=== PATIENT | female | born 2005 | race Caucasian/White ===

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

== ENCOUNTER 2023-01-22 13:45 | Outpatient (CLI) | payer BC, SELFPAY ==
--- NOTE | 2023-01-22 14:18 | P.STN_ITS ---
Stress Test Note Date Date Seen: 01/22/23 Date of test: 01/22/23 Providers Primary care provider: Brigid Cabrera Stress test physician: Leigh Grace Stress Test Note Stress test ordered: Stress Echo Indication for test: Tachycardia Results discussion: Resting EKG: Sinus rhythm, 92 beats per minute. Resting blood pressure: 110/74 Stress test: Patient exercised on the treadmill following standard Jose protocol. Patient exercised to 10 minute 21 seconds stopping due to reaching exercise capacity. This is equivalent to 11.9 Mets. Patient had a maximal heart rate of 196 beat per minute which was 114% of a calculated target heart rate of 171. He she had a rate pressure product of 25,200 with a maximal blood pressure during exercise of 144/78. There was no arrhythmia, no ischemia, patient had no significant symptoms that would not be expected for this level of exercise. Specifically there is no chest pain. She had good heart rate recovery. Await echo images to couple this for a full formal diagnostic. Impression: Subjectively negative, objectively negative EKG portion of this stress test. Follow up suggested: Await Cardiology to read echo images to couple this for a full formal diagno stic. She should get a report from her ordering primary once this is back. Patient was discharged from the stress test in stable condition.
[2023-01-22 14:43] VITALS: BP 130/64; PULSE 119; RESP 18
== END 2023-01-22 14:51 | disposition home or self-care (01) ==
LOC: STRESS 13:45
PROVIDERS: PCP Physician Assistant Medical; Visit Provider Family Medicine
DX: R00.0 Tachycardia, unspecified (principal)
CPT/HCPCS: 93016; 93325; 93351

== ENCOUNTER 2023-05-23 11:47 | Emergency (ER) | payer BC, SELFPAY ==
[2023-05-23 11:51] VITALS: BP 129/78; PULSE 99; RESP 16; TEMP 36.9; O2SAT 98; BMI 22.5
--- NOTE | 2023-05-23 12:22 | CRLHL7_ITS ---
For Patients: As a result of the Century Cures Act, medical imaging exams and procedure reports are released immediately into your electronic medical record. You may view this report before your referring provider. If you have questions, please contact your health care provider. INDICATION: Questioning right peritonsillar abscess. TECHNIQUE: CT images of the neck following intravenous contrast. Comparison CT neck 04/28/2022. FINDINGS: Enlargement of the right greater left palatine tonsils demonstrating striated enhancement. Hypoenhancement within the right tonsil/peritonsillar region measuring up to 9 mm, compatible with phlegmon or abscess. Mass effect results in mild narrowing of the oropharyngeal airway. Mild stranding in the right parapharyngeal space. The nasopharynx, hypopharynx, and larynx are widely patent. No retropharyngeal edema or thickening of the epiglottis. No enhancing lesions in the floor of mouth. The parotid and submandibular glands unremarkable. Enlarged bilateral level I and II lymph nodes, several of which demonstrate elongated morphology. The thyroid gland is unremarkable. Limited images through the brain are without pathologic intracranial enhancement. The paranasal sinuses and mastoid air cells are clear. Reversal of the cervical lordosis. No aggressive osseous lesions. No concerning opacity is in the visualized lungs. IMPRESSION: 1. Enlargement of the right greater than left palatine tonsils demonstrating striated enhancement, compatible with tonsillitis. Hypoenhancement measuring 10 mm within the right tonsil/peritonsillar region is compatible with phlegmon or abscess. There is mild narrowing of the oropharyngeal airway. 2. Enlarged bilateral level I and II lymph nodes are most likely reactive. Please note that all CT scans at this facility use dose modulation, iterative reconstruction, and/or weight-based dosing when appropriate to reduce radiation dose to as low as reasonably achievable. Dictated by Familia Jaramillo MD @ 05/23/2023 2:35:36 PM (Electronically Signed)
--- NOTE | 2023-05-23 12:22 | ED_ITS ---
HPI - General Adult General Chief complaint: Sore Throat Stated complaint: Throat abscess Time Seen by Provider: 05/23/23 12:08 History of Present Illness HPI narrative: This 17-year-old female comes in with her mother because of sore throat that began 5 days ago. She has a history of peritonsillar abscess that occurred about a year ago. She states that she has sore throat but denies having any fever or cough. She feels some swelling on the right side of her neck. Her right tonsil is also enlarged. She does report a muffled voice but does not have any trismus. Related Data Previous Rx's Medication Instructions Recorded desogestrel 0.15 mg-ethinyl 1 tab PO QDAY #84 tabs 05/08/23 estradiol 0.03 mg tablet (Apri) sertraline 50 mg tablet 50 mg PO QDAY #90 tabs 05/08/23 amoxicillin 875 mg-potassium 1 tab PO BID #20 tabs 05/23/23 clavulanate 125 mg tablet ketorolac 10 mg tablet 10 mg PO Q8H 5 days #15 tabs 05/23/23 Allergies Allergy/AdvReac Type Severity Reaction Status Date / Time amoxicillin AdvReac Vomiting Verified 05/23/23 11:56 Review of Systems Status of ROS: Reports: 10 or more systems reviewed and unremarkable except as noted in History and below Narrative: Constitutional: No fevers, no weight gain or loss. Eyes: No discharge. No vision changes. HENT: No congestion, no ear pain. Sore throat is described above. Cardiovascular: No chest pain, no palpitations. Respiratory: No shortness of breath, no wheezes, no cough. Gastrointestinal: No abdominal pain, no vomiting, no diarrhea. Genitourinary: No dysuria, no hematuria. Musculoskeletal: Normal range of motion. Skin: No rashes, no pruritis. Neurological: No dizziness, weakness, sensory change, speech change. Endo/Heme/Allergies: No bruising or bleeding. No polydipsia. Pysch: no suicidality, no anxiety, no insomnia. All other systems reviewed and are negative. [facility] Social History Smoking Status: Never smoker Do you use any of these nicotine containing products: None Second hand tobacco smoke exposure: No How often do you have a drink containing alcohol: never AUDIT-C Alcohol total score: 0 Non-prescribed substance use: denies use Exam Narrative: Exam Narrative: Constitutional: Well-developed, well-nourished, no acute distress. HEENT: Normocephalic, atraumatic. Oropharynx has erythema with right tonsillar hypertrophy. She has some muffled voice but no trismus. Neck: Normal range of motion. Nontender. Supple. Heart: Regular. No murmurs. Normal rate. Intact distal pulses. Lungs: Clear to auscultation. No chest discomfort. No wheezes, rhonchi, or rales. Abdomen: Normal bowel sounds. Nontender. No rebound tenderness. Genitalia: Deferred. Back: No midline tenderness. Normal range of motion. Extremities: Normal range of motion. No injury. Skin: Intact. No rash. Warm. No erythema or pallor. Neurologic: No altered sensation. No weakness. Alert and oriented. Psychiatric: No suicidality. No anxiety or depression. No insomnia. Nursing notes and vitals signs are reviewed. Const: Vital Signs, click to edit/add: Vital Signs - 24 hr 05/23/23 11:51 Temperature 98.4 F Pulse Rate [Right Pulse Oximeter] 99 Respiratory Rate 16 Blood Pressure [Ri ght Upper Arm] 129/78 Pulse Oximetry 98 Oxygen Delivery Me thod Room Air Course Vital Signs Vital signs: Initial Vital Signs Temperature 98.4 F 05/23/23 11:51 Temperature Source Temporal Artery Scan 05/23/23 11:51 Pulse Rate 99 05/23/23 11:51 Respiratory Rate 16 05/23/23 11:51 Blood Pressure 129/78 05/23/23 11:51 Blood Pressure Mean 95 05/23/23 11:51 Blood Pressure Position Sitting 05/23/23 11:51 Pulse Oximetry 98 05/23/23 11:51 Oxygen Delivery Method Room Air 05/23/23 11:51 Vital Signs Temperature 98.4 F 05/23/23 11:51 Pulse Rate 99 05/23/23 11:51 Respiratory Rate 16 05/23/23 11:51 Blood Pressure 129/78 05/23/23 11:51 Pulse Oximetry 98 05/23/23 11:51 Oxygen Delivery Method Room Air 05/23/23 11:51 Temperature 98.4 F 05/23/23 11:51 Pulse Rate 99 05/23/23 11:51 Respiratory Rate 16 05/23/23 11:51 Blood Pressure 129/78 05/23/23 11:51 Pulse Oximetry 98 05/23/23 11:51 Oxygen Delivery Method Room Air 05/23/23 11:51 Medications Administered Medications: Discontinued Medications Generic Name Dose Route Start Last Admin Trade Name Jeffrey PRN Reason Stop Dose Admin Hydromorphone HCl 0.5 mg 05/23/23 14:56 05/23/23 15:14 Hydromorphone 0.5 Mg/0.5 Ml Inj IVP 05/23/23 14:57 0.5 mg ONCE ONE Administration Ampicillin Sodium/Sulbactam 100 mls @ 200 mls/hr 05/23/23 14:56 05/23/23 15:14 Sodium 3 gm/ Sodium Chloride IVPB 05/23/23 14:57 200 mls/hr ONCE ONE Administration Ondansetron HCl 4 mg 05/23/23 14:56 05/23/23 15:14 Ondansetron 2 Mg/Ml Inj IVP 05/23/23 14:57 4 mg ONCE ONE Administration Medical Decision Making MDM Narrative Medical decision making narrative: This patient comes in with 5 days of sore throat and notices swelling of her tonsil on the right side with associated pain and swelling in the right side of her neck. She had a tonsillar abscess about a year ago and comes in thinking that she may have developed another tonsillar abscess. An IV is established and CT of the soft tissue of the neck is obtained which does show evidence of a 1 cm abscess. This is on the borderline for needing drainage. The patient does wish to have an attempt at drainage as this was what brought relief a year ago. The patient did receive Dilaudid 0.5 mg and Zofran 4 mg in the IV. She also received 3 g of Unasyn. I did anesthetize the right tonsil with 1% lidocaine with epinephrine and then followed by a bee 18 gauge needle with the cap partially cut off to restrict to no more than penetration of about 1/2 inch. I attempted to drain fluid with 2 pokes. There was no fluid aspirated. This patient is okay to return home and received prescriptions for Augmentin and Toradol. She has a listed allergy to amoxicillin but has tolerated both Unasyn and Augmentin in the past. The patient understands signs and symptoms that would indicate a need for return and re-evaluation. Lab Data Labs: Lab Results 05/23/23 Range/Units 12:35 WBC 6.66 (4.50-11.00) K/uL RBC 4.17 (4.00-5.20) m/uL Hgb 12.6 (12.0-16.0) gm/dL Hct 38.1 (33.0-51.0) % MCV 91 (80-100) fL MCH 30 (26-34) pg MCHC 33 (32-36) gm/dL RDW Coeff of Ino 13.7 (11.5-15.5) % Plt Count 146 (140-440) K/uL Neut % (Auto) 45.0 (42.0-72.0) % Lymph % (Auto) 48.3 H (20-44) % [place] % (Auto) 5.9 (0.0-11.0) % Eos % (Auto) 0.2 (0.0-7.0) % Baso % (Auto) 0.3 (0.0-3.0) % Neut # (Auto) 3.00 (1.7-7.0) K/uL Lymph # (Auto) 3.20 H (0.90-2.90) K/uL [place] # (Auto) 0.40 (0.00-0.90) K/UL Eos # (Auto) 0.01 (0.00-0.50) K/uL Baso # (Auto) 0.02 (0.00-0.30) K/uL Abs Immat Gran (auto) 0.02 (0.00-0.30) K/uL Imm/Tot Granulo (auto) 0.3 % Diff Slide Review Acceptable Review (Acceptable) Discharge Plan Discharge Clinical Impression: Tonsillar abscess Patient Disposition: Home w/ Parent or Adult Condition: Stable Additional Instructions: Take medication as prescribed. Follow-up with your nose and throat for ongoing management or return if symptoms are persistent or worsening. Prescriptions: New ketorolac 10 mg tablet 10 mg PO Q8H 5 Days Qty: 15 0RF amoxicillin-pot clavulanate 875-125 mg tablet 1 tab PO BID Qty: 20 0RF No Action sertraline 50 mg tablet 50 mg PO QDAY Qty: 90 0RF Rx Instructions: one tablet daily desogestrel-ethinyl estradiol [Apri] 0.15-0.03 mg tablet 1 tab PO QDAY Qty: 84 0RF Follow Up/Referrals: Brigid Cabrera PA-C [Primary Care Provider] - Stand Alone Forms: [employer] Info Instructions
[2023-05-23 12:40] LABS: Basophils Absolute Auto 0.02 K/uL (0.00-0.30); Basophils Percent Auto 0.3 % (0.0-3.0); Eosinophils Absolute Auto 0.01 K/uL (0.00-0.50); Eosinophils Percent Auto 0.2 % (0.0-7.0); Hematocrit 38.1 % (33.0-51.0); Hemoglobin* 12.6 gm/dL (12.0-16.0); Immature Granulocytes Abs Auto 0.02 K/uL (0.00-0.30); Immature Granulocytes Pct Auto 0.3 %; Lymphocytes Percent Auto 48.3 % (20-44); Mean Corpuscular HGB Conc 33 gm/dL (32-36); Mean Corpuscular Hemoglobin 30 pg (26-34); Mean Corpuscular Volume 91 fL (80-100); Monocytes Percent Auto 5.9 % (0.0-11.0); Platelet Count* 146 K/uL (140-440); RDW Coefficient of Variation % 13.7 % (11.5-15.5); Red Blood Count 4.17 m/uL (4.00-5.20); White Blood Count* 6.66 K/uL (4.50-11.00)
[2023-05-23 13:02] LABS: Slide Review Reflex Yes
[2023-05-23 13:03] LABS: Slide Review Acceptable Review (Acceptable)
[2023-05-23] MEDS: ONDANSETRON 2 MG/ML inj 4 MG IVP (15:14)
[2023-05-23] MEDS: AMPICILLIN/SULBACTAM 3 GM in 0.9 % SODIUM CHLORIDE Mini-bag 100 ML IVPB (15:14)
[2023-05-23] MEDS: HYDROmorphone 0.5 mg/0.5 ml inj IVP (15:14)
[2023-05-23 15:22] VITALS: BP 112/75; PULSE 85; RESP 16; O2SAT 99
--- NOTE | 2023-05-24 17:37 | ED.NURSE ---
Patient called today stating that the following antibiotic was not received by [facility]: Cefuroxime 500 mg tablet BID x 10 days #20 She was able to slate picker the Toradol prescription, she has an allergy to Amoxicillin. This was called in again to [facility] per discharge instructions. Patient appreciated the follow up.
== END 2023-05-23 16:34 | disposition home or self-care (01) ==
PROVIDERS: Emergency Provider Emergency Medicine Emergency Medical Services; PCP Physician Assistant Medical
DX: J36 Peritonsillar abscess (principal)
CPT/HCPCS: 10160; 36415; 70491; 85025; 96365; 96375; 99284; 99285; J0295; J1170; J2405; Q9967

== ENCOUNTER 2023-05-26 11:16 | Observation (INO) | payer BC, SELFPAY ==
[2023-05-26] VITALS (7 sets, daily range): BP systolic 114–139; BP diastolic 75–91; PULSE 85–88; RESP 16–17; TEMP 36.6; O2SAT 97–99; BMI 22.5; BMI 24.0
--- NOTE | 2023-05-26 11:38 | ED_ITS ---
HPI - General Adult General Chief complaint: Sore Throat Stated complaint: Likely med reaction--face/throat swollen Time Seen by Provider: 05/26/23 11:29 Source: patient Mode of arrival: ambulatory Limitations: no limitations History of Present Illness HPI narrative: 17-year-old female coming in today with worsening sore throat. Patient was seen on 05/23 and diagnosed with a right sided tonsillar and peritonsillar abscess. Drainage was attempted in the ER but nothing was able to be draining she was sent home with antibiotics. She states that she has had 3 doses of her antibiotic and today she woke up with worsening sore throat and swelling around her eyes. She noticed that she looked in the mirror and the left tonsil is now also swollen. She denies fevers or chills. No nausea. No difficulty breathi ng. She denies swelling of her lips or tongue. She denies any skin rashes. Related Data Previous Rx's Medication Instructions Recorded desogestrel 0.15 mg-ethinyl 1 tab PO QDAY #84 tabs 05/08/23 estradiol 0.03 mg tablet (Apri) sertraline 50 mg tablet 50 mg PO QDAY #90 tabs 05/08/23 amoxicillin 875 mg-potassium 1 tab PO BID #20 tabs 05/23/23 clavulanate 125 mg tablet cefuroxime axetil 500 mg tablet 500 mg PO BID 10 days #20 tabs 05/23/23 ketorolac 10 mg tablet 10 mg PO Q8H 5 days #15 tabs 05/23/23 Allergies Allergy/AdvReac Type Severity Reaction Status Date / Time amoxicillin AdvReac Vomiting Verified 05/23/23 11:56 Review of Systems Status of ROS: Reports: 10 or more systems reviewed and unremarkable except as noted in History and below [facility] Social History Smoking Status: Never smoker Do you use any of these nicotine containing products: None Second hand tobacco smoke exposure: No How often do you have a drink containing alcohol: never AUDIT-C Alcohol total score: 0 Non-prescribed substance use: denies use Exam Narrative: Exam Narrative: Well-nourished well-developed patient in no acute distress. Alert and oriented. Answers questions appropriately. Mood and affect are appropriate. Thoughts are goal oriented and rational. No tangential or magical thinking noted. Patient speaks in full sentences without needing to catch her breath. HEENT: Normocephalic atraumatic. Pupils are equally round reactive to light. Extraocular muscles are intact. Conjunctivae are moist without any icterus noted. Moist mucous membranes. Posterior pharynx shows bilateral tonsillar swelling, right greater than the left. Exudates present bilaterally and erythema. There is no swelling of the lips or tongue. Cardiovascular: Heart is regular rate and rhythm. Lungs: Clear to auscultation bilaterally. Skin: Well perfused without any obvious rashes. Const: Vital Signs, click to edit/add: Vital Signs - 24 hr 05/26/23 11:24 05/26/23 14:04 Temperature 97.8 F Pulse Rate [Pulse Oximeter] 88 85 Respiratory Rate 17 16 Blood Pressure [Ri ght Upper Arm] 132/80 Pulse Oximetry 99 97 Oxygen Delivery Me thod Room Air Room Air Course Course ED Course: [place] was positive. Rapid strep is negative. Repeat soft tissue neck CT shows that the right-sided tonsillar abscesses increased to 1.3 cm. I did consult with Dr. Patel who recommended IV antibiotics, dexamethasone 8 mg every 6 hours x3 doses and admission for monitoring. First dose of clindamycin dexamethasone given in the ED. Vital Signs Vital signs: Initial Vital Signs Temperature 97.8 F 05/26/23 11:24 Temperature Source Temporal Artery Scan 05/26/23 11:24 Pulse Rate 88 05/26/23 11:24 Respiratory Rate 17 05/26/23 11:24 Blood Pressure 132/80 05/26/23 11:24 Blood Pressure Mean 97 05/26/23 11:24 Pulse Oximetry 99 05/26/23 11:24 Oxygen Delivery Method Room Air 05/26/23 11:24 Vital Signs Temperature 97.8 F 05/26/23 11:24 Pulse Rate 88 05/26/23 11:24 Respiratory Rate 17 05/26/23 11:24 Blood Pressure 132/80 05/26/23 11:24 Pulse Oximetry 99 05/26/23 11:24 Oxygen Delivery Method Room Air 05/26/23 11:24 Temperature 97.8 F 05/26/23 11:24 Pulse Rate 85 05/26/23 14:04 Respiratory Rate 16 05/26/23 14:04 Blood Pressure 132/80 05/26/23 11:24 Pulse Oximetry 97 05/26/23 14:04 Oxygen Delivery Method Room Air 05/26/23 14:04 Medications Administered Medications: Discontinued Medications Generic Name Dose Route Start Last Admin Trade Name Jeffrey PRN Reason Stop Dose Admin Dexamethasone 8 mg 05/26/23 13:29 05/26/23 14:02 Dexamethasone 4 Mg/Ml Vial IV 05/26/23 13:30 8 mg ONCE ONE Administration Medical Decision Making MDM Narrative Medical decision making narrative: 17-year-old female with a tonsillar abscess. Patient will be admitted for further management. Medical Records Medical records reviewed: Yes I reviewed the patient's medical records Lab Data Lab results reviewed: Yes I reviewed the patient's lab results Labs: Lab Results 05/26/23 Range/Units 11:56 Monoscreen POSITIVE A (Negative) Group A Strep DNA NOT DETECTED (Not Detectd) Imaging Data Soft tissue neck CT: Radiologist's impression: Volumetric multidetector CT images of the cervical soft tissues were obtained after the administration of low osmolar intravenous contrast. 66 cc Isovue 370 low osmolar intravenous contrast Comparison: CT soft tissue neck May 2023 Findings: The partially visualized brain parenchyma is normal in attenuation without evidence of abnormal enhancement. The orbits and their contents are within normal limits. The paranasal sinuses are clear. The mastoid air cells are clear. The nasopharynx is unremarkable. The fossae of Rosenmuller are clear. Again seen is enlargement of the right greater than left palatine tonsils with demonstration of an intra tonsillar fluid collection measuring 1.3 centimeters. This is slightly increased in size from comparison. No evidence of significant peritonsillar extension at this time. The hypopharynx is clear. The deep spaces of the neck are otherwise preserved. The vocal folds are nonthickened with symmetrical appearance. The thyroid gland is normal in attenuation. There are enlarged right greater than left cervical lymph nodes again seen. The jugular veins are patent. The carotid arteries demonstrate no significant atherosclerotic narrowing. The lung apices are clear. There is persistent mild reversal of the normal cervical lordosis. Impression: Persistent enlargement of the bilateral palatine tonsils right greater than left with re-demonstration of an intra tonsillar fluid collection in the right tonsil now measuring 1.3 centimeters, previously measuring 9 millimeters. No evidence of significant peritonsillar extension. Persistent markedly enlarged cervical lymph nodes. Discharge Plan Discharge Clinical Impression: Abscess of tonsil Patient Disposition: Admitted As Observation Condition: Stable Prescriptions: No Action ketorolac 10 mg tablet 10 mg PO Q8H 5 Days Qty: 15 0RF amoxicillin-pot clavulanate 875-125 mg tablet 1 tab PO BID Qty: 20 0RF cefuroxime axetil 500 mg tablet 500 mg PO BID 10 Days Qty: 20 0RF sertraline 50 mg tablet 50 mg PO QDAY Qty: 90 0RF Rx Instructions: one tablet daily desogestrel-ethinyl estradiol [Apri] 0.15-0.03 mg tablet 1 tab PO QDAY Qty: 84 0RF Follow Up/Referrals: Brigid Cabrera PA-C [Primary Care Provider] -
--- NOTE | 2023-05-26 11:42 | CRLHL7_ITS ---
For Patients: As a result of the Cures Act, medical imaging exams and procedure reports are released immediately into your electronic medical record. You may view this report before your referring provider. If you have questions, please contact your health care provider. Indication: Tonsillar abscess Technique: Volumetric multidetector CT images of the cervical soft tissues were obtained after the administration of low osmolar intravenous contrast. 66 cc Isovue 370 low osmolar intravenous contrast Comparison: CT soft tissue neck May 2023 Findings: The partially visualized brain parenchyma is normal in attenuation without evidence of abnormal enhancement. The orbits and their contents are within normal limits. The paranasal sinuses are clear. The mastoid air cells are clear. The nasopharynx is unremarkable. The fossae of Rosenmuller are clear. Again seen is enlargement of the right greater than left palatine tonsils with demonstration of an intra tonsillar fluid collection measuring 1.3 centimeters. This is slightly increased in size from comparison. No evidence of significant peritonsillar extension at this time. The hypopharynx is clear. The deep spaces of the neck are otherwise preserved. The vocal folds are nonthickened with symmetrical appearance. The thyroid gland is normal in attenuation. There are enlarged right greater than left cervical lymph nodes again seen. The jugular veins are patent. The carotid arteries demonstrate no significant atherosclerotic narrowing. The lung apices are clear. There is persistent mild reversal of the normal cervical lordosis. Impression: Persistent enlargement of the bilateral palatine tonsils right greater than left with re-demonstration of an intra tonsillar fluid collection in the right tonsil now measuring 1.3 centimeters, previously measuring 9 millimeters. No evidence of significant peritonsillar extension. Persistent markedly enlarged cervical lymph nodes. Please note that all CT scans at this facility use dose modulation, iterative reconstruction, and/or weight-based dosing when appropriate to reduce radiation dose to as low as reasonably achievable. Dictated by Randolph Dhillon MD @ 05/26/2023 1:08:32 PM (Electronically Signed)
[2023-05-26 12:21] LABS: Mono Screen* POSITIVE (Negative)
[2023-05-26 12:41] LABS: Strep A DNA Probe* NOT DETECTED (Not Detectd)
[2023-05-26] MEDS: dexAMETHasone 4 MG/ML VIAL 8 MG IV ×2 (14:02→21:17)
[2023-05-26] MEDS: CLINDAMYCIN 600 MG/50 ML-D5W 600 MG/50 ML PIGGYBACK 100 MG IVPB ×2 (14:19→21:15)
--- NOTE | 2023-05-26 15:16 | P.IMHP_ITS ---
Hospitalist- H&P: HPI History of Present Illness Time Seen by Provider: 14:20 Date Seen: 05/26/23 Chief complaint: Likely med reaction--face/throat swollen Narrative: Dinah Martin is a 17 year old female with a history of sarcoma of the left forearm 5 years ago and was recently diagnosed with a right-sided tonsillar and peritonsillar abscess 3 days ago who came back to the ER today concerned about swelling around her eyes. She started feeling sick about a week ago which was the 1st day of her classes for this semester at [employer]. It started with muscle aches and chills and then she developed a sore throat. She denies any true fevers, but did have night sweats. Her sore throat got worsen worse and she notes that it felt a lot like when she had a peritonsillar abscess a year ago, so she came into the ER on 05/23/[address] scan done that showed the right-sided tonsillar and peritonsillar abscess. A drainage was obtained today in the ER, but nothing was able to be drained. She went home with a cephalosporin due to history of an allergy to amoxicillin. She tells me that she actually has less pain and swelling in her throat than she did 3 days ago. She has been able to eat and drink again and is even eating things like potato chips now without difficulty. Today when she woke up she had some swelling around her eyes and she was concerned it was an allergic reaction to the cephalosporin that she was taking. She denies any difficulty breathing, numbness, tingling, or swelling around the mouth or lips. Review of Systems Status of ROS: Reports: 10 or more systems reviewed and unremarkable except as noted in History and below [facility] Medical History (Updated 05/26/23 @ 17:04 by Katharina Pérez MD) Normal stress echocardiogram Anxiety ?F41.9 - Anxiety disorder, unspecified (ICD-10) Uses control ?Z78.9 - Other specified health status (ICD-10) Sarcoma ?C49.9 - Malignant neoplasm of connective and soft tissue, unspecified (ICD- 10) Surgical History (Updated 05/26/23 @ 15:19 by Katharina Pérez MD) History of surgery on upper extremity ?Z98.890 - Other specified postprocedural states (ICD-10) Family History (Updated 05/26/23 @ 15:20 by Katharina Pérez MD) Father Prostate cancer Social History (Updated 05/26/23 @ 15:24 by Katharina Pérez MD) Narrative: [employer] at [email or web address], planning to major in investigative/criminal justice. Never smoker. Drinks 5-6 drinks about twice a month. Last alcohol use was New Year's. Denies recreational drug use/marijuana. She said her mother was on her way here and did not want me to call to give an update. Smoking Status: Never smoker Do you use any of these nicotine containing products: None Second hand tobacco smoke exposure: No How often do you have a drink containing alcohol: never AUDIT-C Alcohol total score: 0 Non-prescribed substance use: denies use Meds Home Medications and Allergies Home Medications Medication Instructions Recorded Confirmed Type desogestrel 0.15 mg-ethinyl 1 tab PO HS 05/26/23 05/26/23 History estradiol 0.03 mg tablet (Apri) ketorolac 10 mg tablet 10 mg PO Q8H PRN pain 05/26/23 05/26/23 History sertraline 50 mg tablet 25 mg PO HS 05/26/23 05/26/23 History Allergies Allergy/AdvReac Type Severity Reaction Status Date / Time amoxicillin AdvReac Vomiting Verified 05/23/23 11:56 Exam Narrative: Exam Narrative: General: No acute distress. Appears comfortable. Able to carry on an extensive conversation without difficulty. Awake alert oriented. HEENT: Normocephalic atraumatic, pupils equally round and reactive to light and accommodation. Oropharynx bilateral tonsillar swelling with exudates and erythema, right greater than left. Voice quality is normal and is not hoarse or muffled. No trismus. Mucous membranes are moist. Anterior cervical lymphadenopathy is present bilateral, no thyromegaly or carotid bruits. No JVD. Cardiovascular: Regular rate and rhythm. No murmurs, gallops, or rubs. Chest: No increased work of breathing. No stridor. Clear to auscultation bilaterally. No crackles or wheezes. Abdomen: Bowel sounds present. Soft, nondistended, nontender. No hepatosplenomegaly or masses. Extremities: No edema, no cyanosis or clubbing. Skin: No jaundice, no pallor, no rashes. Const: Vital Signs, click to edit/add: Vital Signs - 24 hr 05/26/23 11:24 05/26/23 14:04 Temperature 97.8 F Pulse Rate [Pulse Oximeter] 88 85 Respiratory Rate 17 16 Blood Pressure [Ri ght Upper Arm] 132/80 Pulse Oximetry 99 97 Oxygen Delivery Me thod Room Air Room Air Hospitalist - H&P: Result Labs Labs: Monoscreen positive. Group A strep DNA not detected. Ordering Physician: Leigh Salgado M.D. Date of Service: 05/26/23 Procedure(s): CT soft tissue neck w con Accession Number(s): [id number] cc: Leigh Salgado M.D.; Brigid PAYNE~ For Patients: As a result of the Cures Act, medical imaging exams and procedure reports are released immediately into your electronic medical record. You may view this report before your referring provider. If you have questions, please contact your health care provider. Indication: Tonsillar abscess Technique: Volumetric multidetector CT images of the cervical soft tissues were obtained after the administration of low osmolar intravenous contrast. 66 cc Isovue 370 low osmolar intravenous contrast Comparison: CT soft tissue neck May 2023 Findings: The partially visualized brain parenchyma is normal in attenuation without evidence of abnormal enhancement. The orbits and their contents are within normal limits. The paranasal sinuses are clear. The mastoid air cells are clear. The nasopharynx is unremarkable. The fossae of Rosenmuller are clear. Again seen is enlargement of the right greater than left palatine tonsils with demonstration of an intra tonsillar fluid collection measuring 1.3 centimeters. This is slightly increased in size from comparison. No evidence of significant peritonsillar extension at this time. The hypopharynx is clear. The deep spaces of the neck are otherwise preserved. The vocal folds are nonthickened with symmetrical appearance. The thyroid gland is normal in attenuation. There are enlarged right greater than left cervical lymph nodes again seen. The jugular veins are patent. The carotid arteries demonstrate no significant atherosclerotic narrowing. The lung apices are clear. There is persistent mild reversal of the normal cervical lordosis. Impression: Persistent enlargement of the bilateral palatine tonsils right greater than left with re-demonstration of an intra tonsillar fluid collection in the right tonsil now measuring 1.3 centimeters, previously measuring 9 millimeters. No evidence of significant peritonsillar extension. Persistent markedly enlarged cervical lymph nodes. Please note that all CT scans at this facility use dose modulation, iterative reconstruction, and/or weight-based dosing when appropriate to reduce radiation dose to as low as reasonably achievable. Dictated by Randolph Dhillon MD @ 05/26/2023 1:08:32 PM (Electronically Signed) Assessment and Plan Assessment and plan (1) Tonsillar abscess: Problem comment: - larger intratonsillar fluid collection in the right tonsil, now 1.3 cm, was 9 mm on 05/23/23. - Dr. Truong recommended overnight admission, clinda (due to PCN allergy) and dexamethasone 8mg [id number] x 3 doses. Status: Acute (2) Mononucleosis: Problem comment: Supportive cares. Status: Acute
[2023-05-26] MEDS: SERTRALINE 50 MG TABLET 25 MG PO (21:13)
[2023-05-26] MEDS: SODIUM CHLORIDE 0.9 % (FLUSH) 10 ML SYRINGE 5 ML IVF (21:17)
--- NOTE | 2023-05-26 22:33 | PC.NURSE ---
Patient tolerating antibiotic infusion without any reaction. Complains of mild discomfort in her throat that she rates at a 1/10. Able to eat or drink without any complication.
[2023-05-27 03:00] VITALS: RESP 14; O2SAT 98
[2023-05-27] MEDS: dexAMETHasone 4 MG/ML VIAL 8 MG IV (05:25)
[2023-05-27] MEDS: CLINDAMYCIN 600 MG/50 ML-D5W 600 MG/50 ML PIGGYBACK 100 MG IVPB (05:25)
--- NOTE | 2023-05-27 06:41 | PC.NURSE ---
Shift note: Pain in pt throat within tolerable limits, no increased difficulty swallowing or breathing, or speaking. Afebrile, independent
[2023-05-27 07:20] VITALS: BP 119/82; PULSE 75; RESP 20; TEMP 36.8; O2SAT 98
[2023-05-27 08:06] LABS: Basophils Absolute Auto 0.02 K/uL (0.00-0.30); Basophils Percent Auto 0.2 % (0.0-3.0); Hematocrit 39.4 % (33.0-51.0); Hemoglobin* 13.1 gm/dL (12.0-16.0); Immature Granulocytes Abs Auto 0.02 K/uL (0.00-0.30); Immature Granulocytes Pct Auto 0.2 %; Lymphocytes Absolute Auto 3.53 K/uL (0.90-2.90); Lymphocytes Percent Auto 34.6 % (20-44); Mean Corpuscular HGB Conc 33 gm/dL (32-36); Mean Corpuscular Hemoglobin 30 pg (26-34); Mean Corpuscular Volume 91 fL (80-100); Monocytes Percent Auto 1.8 % (0.0-11.0); Neutrophils Absolute Auto 6.46 K/uL (1.7-7.0); Neutrophils Percent Auto 63.2 % (42.0-72.0); Platelet Count* 231 K/uL (140-440); RDW Coefficient of Variation % 13.5 % (11.5-15.5); Red Blood Count 4.35 m/uL (4.00-5.20); White Blood Count* 10.21 K/uL (4.50-11.00)
[2023-05-27 08:16] VITALS: RESP 20; O2SAT 98
[2023-05-27 08:16] LABS: Chloride* 106 mmol/L (96-114); Potassium* 4.8 mmol/L (3.6-5.1); Sodium* 138 mmol/L (135-149)
[2023-05-27 08:19] LABS: Creatinine* 0.5 mg/dL (0.6-1.2); Est. Creatinine Clearance* 162.85; Estimated Glomerular Filt Rate 138 ml/min
[2023-05-27 08:20] LABS: Anion Gap 8 mEq/L (7-15); Blood Urea Nitrogen* 11 mg/dL (5-24); Calcium* 9.9 mg/dL (8.7-10.8); Carbon Dioxide* 24 mmol/L (20-32); Glucose* 142 mg/dL (60-115)
[2023-05-27 08:33] LABS: Slide Review Reflex Yes
[2023-05-27 08:34] LABS: Slide Review Acceptable Review (Acceptable)
[2023-05-27] MEDS: SODIUM CHLORIDE 0.9 % (FLUSH) 10 ML SYRINGE 5 ML IVF (09:17)
--- NOTE | 2023-05-27 10:02 | P.DS_ITS ---
DS: Providers Provider Date Seen: 05/27/23 Date of admission: 05/26/23 14:49 Primary care physician: Brigid Cabrera PA-C Admitting Clinician: Arvind Ramirez MD Consults: 05/26/23 17:03 Consult to Physician [CONS] Routine Comment: Consulting Provider: De Branham Has provider been notified: Yes Attending Physician on discharge: Dianelys Mina MD Date of Discharge: 05/27/23 DS: Diagnosis Discharge Diagnosis (1) Tonsillar abscess: Status: Acute Problem details: - larger intra tonsillar fluid collection in the right tonsil, now 1.3cm (05/26 imaging), was 9mm on 05/23/23 - Dr. Branham recommended overnight admission, Clindamycin IV (due to PCN allergy) and dexamethasone 8mg [id number] x 3 doses - patient tolerated above treatments well, much improved on hospital day 1 with reassuring VS and exam, requesting d/c home (2) Mononucleosis: Status: Acute Problem details: - supportive cares, quiescent DS: Summary Hospital Course Hospital Course: 17-year-old female who presented to the hospital for persistent sore throat and intra-tonsillar abscess, measuring 1.3cm on 05/27 imaging. ENT consulted with recommendations above (IV Clindamycin, IV Dexamethasone). Patient significantly improved on hospital day 1, able to eat, requesting discharge home. Subjectively and objectively improved. ENT agreeable with d/c, discussed return precautions and followup plan. Status at Discharge Functional status at discharge: independent ambulation Overall status at discharge: patient is progressing back to baseline Time Spent with Patient Time attestation: Total time spent providing and/or coordinating discharge services: Exam Narrative: Exam Narrative: GEN: Alert and oriented, walking comfortably in room HEENT: EOMIs bilaterally, no scleral icterus. Tolerates neck palpation, full ROM of neck. No trismus. + tonsillar hypertrophy, R>L with patent posterior oropharynx. + exudate R tonsil CV: RRR, No concerning murmurs R: LCTA bilaterally without concerning wheezing Ext: wwp, no concerning edema Skin: No concerning skin lesions or rashes on exposed skin (scar noted on LE from previous sarcoma) Neuro: Nonfocal Psych: Appropriate Const: Vital Signs, click to edit/add: Vital Signs - 24 hr 05/26/23 11:24 05/26/23 14:04 05/26/23 14:52 Temperature 97.8 F Pulse Rate [Left P ulse Oximeter] Pulse Rate [Pulse Oximeter] 88 85 Respiratory Rate 17 16 Blood Pressure [Ri ght Arm] Blood Pressure [Ri ght Upper Arm] 132/80 Pulse Oximetry 99 97 97 Oxygen Delivery Me thod Room Air Room Air 05/26/23 15:00 05/26/23 19:00 05/26/23 19:21 Temperature 97.8 F 98 F Pulse Rate [Left P ulse Oximeter] Pulse Rate [Pulse Oximeter] Respiratory Rate 16 16 16 Blood Pressure [Ri ght Arm] 139/91 H 114/75 Blood Pressure [Ri ght Upper Arm] Pulse Oximetry 97 97 97 [facility] 05/26/23 19:21 05/26/23 23:40 05/26/23 23:40 Temperature Pulse Rate [Left P ulse Oximeter] Pulse Rate [Pulse Oximeter] Respiratory Rate 16 16 16 Blood Pressure [Ri ght Arm] Blood Pressure [Ri ght Upper Arm] Pulse Oximetry 97 99 Oxygen Delivery Ms thod Room Air Room Air 05/26/23 23:40 05/27/23 03:00 05/27/23 07:20 Temperature 98 F 98.3 F Pulse Rate [Left P ulse Oximeter] 75 Pulse Rate [Pulse Oximeter] Respiratory Rate 16 14 20 Blood Pressure [Ri ght Arm] 116/76 119/82 Blood Pressure [Ri ght Upper Arm] Pulse Oximetry 99 98 98 Oxygen Delivery Ms thod Room Air Room Air Room Air 05/27/23 08:16 Temperature Pulse Rate [Left P ulse Oximeter] Pulse Rate [Pulse Oximeter] Respiratory Rate 20 Blood Pressure [Ri ght Arm] Blood Pressure [Ri ght Upper Arm] Pulse Oximetry 98 Oxygen Delivery Me thod Room Air DS: Data Data Completed and Pending Labs on day of discharge: Labs from last 24 hours 05/27/23 05/26/23 07:59 11:56 WBC 10.21 RBC 4.35 Hgb 13.1 Hct 39.4 MCV 91 MCH 30 MCHC 33 RDW Coeff of Ino 13.5 Plt Count 231 Neut % (Auto) 63.2 Lymph % (Auto) 34.6 Maries % (Auto) 1.8 Eos % (Auto) 0.0 Baso % (Auto) 0.2 Neut # (Auto) 6.46 Lymph # (Auto) 3.53 H Maries # (Auto) 0.20 Eos # (Auto) 0.00 Baso # (Auto) 0.02 Abs Immat Gran (auto) 0.02 Imm/Tot Granulo (auto) 0.2 Diff Slide Review Acceptable Review Sodium 138 Potassium 4.8 Chloride 106 Carbon Dioxide 24 Anion Gap 8 BUN 11 Creatinine 0.5 L Estimated Creat Clear 162.85 Estimated GFR 138 Glucose 142 H Calcium 9.9 C-Reactive Protein 3.0 H Monoscreen POSITIVE A Group A Strep DNA NOT DETECTED Discharge Plan Discharge Disposition: Home, Self-Care Date of Admission: 05/26/23 14:49 Attending Provider on Discharge: Dianelys Mina Consulting Providers: De Branham Primary Care Provider: Brigid Cabrera Condition: Stable Anticipated Discharge Date/Time: 05/27/23 09:56 Discharge Medications: New clindamycin HCl 300 mg capsule 300 mg PO TID 6 Days Qty: 18 0RF Continued desogestrel-ethinyl estradiol [Apri] 0.15-0.03 mg tablet 1 tab PO HS sertraline 50 mg tablet 25 mg PO HS Discontinued cefuroxime axetil 500 mg tablet 500 mg PO BID 10 Days Qty: 20 0RF ketorolac 10 mg tablet 10 mg PO Q8H PRN (Reason: pain) Discharge Orders: Discharge Order (Routine); Ordered 05/27/23 Ordered By: Dianelys Mina Patient Education: Clindamycin (By mouth) Additional Instructions: Antibiotics at [facility]. Take as directed with food (and make sure you're taking a probiotic daily to prevent any stomach issues). For discomfort, alternate Tylenol (650mg every 4-6 hours) with Ibuprofen (600mg every 6 hours). Soft diet for the next few days. See Dr. Branham in f/u as scheduled. You must return to the hospital with any difficulty breathing, swallowing, or pain with opening your mouth. Activity Level: Activity as Tolerated Diet Detail: soft for the next 5-7 days Follow Up Appointments: De Branham [Other] - 06/09/23 1:15 pm ([facility] for follow-up) Brigid Cabrera PA-C [Primary Care Provider] - De Branham MD [Staff Physician] - (Please schedule appt with Dr. Branham of ENT ([facility] preferred) in 2-3 weeks) Forms: [employer] Info Instructions
[2023-05-27 11:00] VITALS: BP 122/68; PULSE 88; RESP 18; TEMP 36.4; O2SAT 100
--- NOTE | 2023-05-27 12:57 | PC.NURSE ---
Pt alert and oriented. Pt had no complaints of pain. No complaints of SOB or trouble breathing. Pt advanced to regular diet and tolerated well. Pt independent in room. Pt's IV removed; catheter intact. Pt discharged home; follow up appointment made.
== END 2023-05-27 12:00 | disposition home or self-care (01) ==
LOC: ED 14:22 → MEDSURG 14:49
PROVIDERS: Family Medicine; Admitting Provider Family Medicine; Emergency Provider Family Medicine; PCP Physician Assistant Medical; Visit Provider Family Medicine
DX: J36 Peritonsillar abscess (principal); B27.90 Infectious mononucleosis, unspecified without complication; R22.9 Localized swelling, mass and lump, unspecified; Z78.9 Other specified health status; Z98.890 Other specified postprocedural states; Z87.898 Personal history of other specified conditions; Z85.831 Personal history of malignant neoplasm of soft tissue; Z85.89 Personal history of malignant neoplasm of other organs and systems
CPT/HCPCS: 36415; 70491; 80048; 85025; 86140; 86308; 87651; 96365; 96366; 96375; 96376; 99284; 99285; A9270; G0378; J0736; J1100; Q9967

== ENCOUNTER 2023-12-11 09:41 | Day surgery (SDC) | payer BC, SELFPAY ==
[2023-12-11] VITALS (12 sets, daily range): BP systolic 99–133; BP diastolic 60–101; PULSE 63–107; RESP 16–20; TEMP 36.2–36.9; O2SAT 97–100; BMI 24.3
[2023-12-11] MEDS: LACTATED RINGERS 1000 ML 1,000 ML 100 ML IV (08:25)
[2023-12-11 10:10] LABS: Ur HCG Qualitative* Negative (Negative)
[2023-12-11] MEDS: SODIUM CHLORIDE 0.9 % (FLUSH) 10 ML SYRINGE IVF (10:27)
--- NOTE | 2023-12-11 11:40 | W.PM.ENTPROC ---
Procedure Note Date of procedure: 12/11/23 Procedure: Preoperative diagnosis chronic tonsillitis, adenotonsillar hypertrophy, upper airway obstruction, nasal obstruction Postoperative diagnosis same Procedure adenotonsillectomy Under general endotracheal anesthesia the patient was prepped and draped in usual fashion. The McIvor mouth gag was inserted the tongue retracted forward. No submucous cleft was noted on inspection or palpation. The right and left tonsils were removed with a combination of needlepoint cautery, bipolar cautery and suction cautery. Meticulous hemostasis was achieved. The adenoid pad was visualized with a laryngeal mirror and removed with suction cautery. The patient was extubated in the operating room taken recovery in satisfactory condition. Blood loss was less than 10 mL. Surgeon: De Branham MD
--- NOTE | 2023-12-11 11:45 | W.ANESCHARGE ---
Anesthesia Charges Start Date/Time Anesthesia Start Date: 12/11/23 Anesthesia Start Time: 11:17 Stop Date/Time Anesthesia Stop Date: 12/11/23 Anesthesia Stop Time: 11:46
--- NOTE | 2023-12-11 12:12 | SUR.PHASEI ---
Patient meets discharge criteria from PACU
--- NOTE | 2023-12-11 12:13 | W.ANESCHARGE ---
Anesthesia Charges Start Date/Time Anesthesia Start Date: 12/11/23 Anesthesia Start Time: 11:17 Stop Date/Time Anesthesia Stop Date: 12/11/23 Anesthesia Stop Time: 11:46
[2023-12-11] MEDS: OXYCODONE 1 MG/ML ORAL SOLN 5 MG PO (12:23)
[2023-12-11] MEDS: ACETAMINOPHEN 160 MG/5 ML CUP 320 MG PO (12:24)
[2023-12-11] MEDS: IBUPROFEN 100 MG/5 ML SUSP 200 MG PO (13:01)
== END 2023-12-11 13:54 | disposition home or self-care (01) ==
LOC: OR 09:42
PROVIDERS: PCP Physician Assistant Medical; Visit Provider Otolaryngology
PROC: (CPT 42821; principal; 2023-12-11 11:15)
DX: J35.01 Chronic tonsillitis (principal); J35.3 Hypertrophy of tonsils with hypertrophy of adenoids; J34.89 Other specified disorders of nose and nasal sinuses
CPT/HCPCS: 42821; 00170; 81025; 88304; A9270; J1100; J1200; J1630; J2250; J2405; J3010; J7120

== ENCOUNTER 2023-12-21 10:51 | Day surgery (SDC) | payer BC, SELFPAY ==
[2023-12-21] VITALS (13 sets, daily range): BP systolic 107–129; BP diastolic 70–98; PULSE 74–111; RESP 12–18; TEMP 36.2–37.2; O2SAT 95–100; BMI 23.3
--- NOTE | 2023-12-21 11:08 | W.ANESCHARGE ---
Anesthesia Charges Start Date/Time Anesthesia Start Date: 12/21/23 Anesthesia Start Time: 11:21 Stop Date/Time Anesthesia Stop Date: 12/21/23 Anesthesia Stop Time: 11:56 Summary Emergency: MDA
[2023-12-21 11:16] LABS: Ur HCG Qualitative* Negative (Negative)
[2023-12-21] MEDS: SODIUM CHLORIDE 0.9 % (FLUSH) 10 ML SYRINGE IVF (11:19)
[2023-12-21] MEDS: LACTATED RINGERS 1000 ML 1,000 ML 100 ML IV (11:19)
[2023-12-21 11:22] LABS: Hemoglobin* 14.1 gm/dL (12.0-16.0)
--- NOTE | 2023-12-21 11:43 | P.ENTCN_ITS ---
HPI- ENT Consult Date of Consult Date Seen: 12/21/23 Patient: Other Consult date: 12/21/23 Requesting Physician: Other Primary Care Provider: Brigid Cabrera PA-C Consult Narrative Reason for consult: Post tonsillectomy bleeding right-sided Narrative: Dinah Martin is a 18 year old female 8 days status post tonsils developed post tonsillectomy bleeding on the right side. This is not respond irrigation. 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 - Personal history of malignant neoplasm of soft tissue (ICD-10) Mononucleosis (~05/2023) ?B27.90 - Infectious mononucleosis, unspecified without complication (ICD-10) Normal stress echocardiogram Surgical History (Updated 11/30/23 @ 09:49 by Brigid Cabrera PA-C) Hx of wisdom tooth extraction ?K08.409 - Partial loss of teeth, unspecified cause, unspecified class (ICD- 10) History of surgery on upper extremity ?Z98.890 - Other specified postprocedural states (ICD-10) Family History (Updated 11/30/23 @ 09:52 by Brigid Cabrera PA-C) Father Prostate cancer High blood pressure Mother High blood pressure Social History (Updated 11/30/23 @ 09:58 by Brigid Cabrera PA-C) Narrative: [employer] at [employer], planning to major in investigative/criminal justice. Plays college [employer] Dating; Antoine Never smoker. Drinks 5-6 drinks about twice a month. Denies recreational drug use/marijuana. What is your current living situation?: I presently have a place to live Problems where you live: no known problems Problems where you live details: n/a In the past 12 months, utilities in danger of being shut off: no In past 12 months, lack of transportation kept you from medical appts, meetings, work, or getting things needed for daily living: no In the past 12 mos, have been you worried that your food would run out before you had money to buy more?: never true In the past 12 mos, the food you bought just didn't last and you didn't have money to buy more?: never true Highest level of school completed/degree received: 12th grade, no diploma Smoking Status: Never smoker Do you use any of these nicotine containing products: None Second hand tobacco smoke exposure: No How often do you have a drink containing alcohol: never AUDIT-C Alcohol total score: 0 Non-prescribed substance use: denies use Caffeine: Yes (coffee some days) How often does anyone, including family, friends and others, physically hurt you : never How often does anyone, including family, friends and others, insult or talk down to you: never How often does anyone, including family, friends and others, threaten you with harm: never How often does anyone, including family, friends and others, scream or curse at you: never Little interest or pleasure in doing things: not at all Feeling down, depressed, or hopeless: not at all Are you using contraception or practicing any form of control: No service: No Meds Home Medications and Allergies Allergies Allergy/AdvReac Type Severity Reaction Status Date / Time amoxicillin AdvReac Vomiting Verified 11/30/23 09:34 Exam Narrative: Exam Narrative: Insert general hemodynamically stable clot right superior tonsil fossa Const: Vital Signs, click to edit/add: Vital Signs - 24 hr 12/21/23 11:12 Temperature 98.2 F Pulse Rate 111 H Respiratory Rate 18 Blood Pressure 127/98 H Pulse Oximetry 97 Oxygen Delivery Me thod Room Air ENT-CN: Result Labs Labs: Short CBC 12/21/23 Range/Units 11:16 Hgb 14.1 (12.0-16.0) gm/dL Assessment and Plan Assessment and plan (1) Post tonsillectomy secondary hemorrhage: Status: Acute Plan Right post tonsillectomy hemorrhage. Plan discussed either observation or go to operating room for cautery control risks of anesthesia further bleeding etc. reviewed we are planning to go to the operating
--- NOTE | 2023-12-21 11:44 | W.PM.ENTPROC ---
Procedure Note Date of procedure: 12/21/23 Procedure: Preop diagnosis right post tonsillectomy hemorrhage Postoperative diagnosis same Per procedure cautery control right post tonsillectomy hemorrhage Under general trach anesthesia patient was prepped draped usual fashion. The McIvor mouth gag was inserted the tongue retracted forward. There is a medium size clot in the right superior tonsil fossa. This was removed revealed resulting in moderate bleeding that appeared to be venous. This was easily controlled with suction cautery and Coblation. The gag was let down the patient observed and then she was read cauterized in the same area. An NG tube was passed on low suction and the stomach emptied of gastric contents there not appear to be a large amount of blood. The patient was extubated Afrin taken recovery in satisfactory condition blood loss during procedure was 5 mL. Surgeon: De Branham MD
--- NOTE | 2023-12-21 11:56 | P.ANES_ITS ---
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
[2023-12-21] MEDS: ACETAMINOPHEN 160 MG/5 ML CUP 320 MG PO (12:35)
[2023-12-21] MEDS: IBUPROFEN 100 MG/5 ML SUSP 200 MG PO (12:35)
== END 2023-12-21 13:36 | disposition home or self-care (01) ==
PROVIDERS: PCP Physician Assistant Medical; Visit Provider Otolaryngology
PROC: (CPT 42960; principal; 2023-12-21 11:00)
DX: J95.830 Postprocedural hemorrhage of a respiratory system organ or structure following a respiratory system procedure (principal)
CPT/HCPCS: 42962; 00170; 36415; 81025; 85018; 99140; A9270; J0330; J1100; J2250; J2405; J2704; J3010; J7120

== ENCOUNTER 2024-07-25 13:25 | Outpatient (CLI) | payer BC, SELFPAY ==
[2024-07-26 02:26] LABS: Chlamydia DNA Amplified* NOT DETECTED (No Detected); GC DNA Amplified* NOT DETECTED (No Detected)
== END 2024-07-25 13:26 | disposition home or self-care (01) ==
PROVIDERS: PCP Physician Assistant Medical; Visit Provider Physician Assistant Medical
DX: Z11.3 Encounter for screening for infections with a predominantly sexual mode of transmission (principal); Z12.4 Encounter for screening for malignant neoplasm of cervix; Z13.220 Encounter for screening for lipoid disorders; Z13.1 Encounter for screening for diabetes mellitus
CPT/HCPCS: 80061; 82947; 87491; 87591; 87624; 87625; 88141; 88142